=== PATIENT | male | born 1950 | race Caucasian/White ===

== ENCOUNTER 2021-06-19 15:22 | Emergency (ER) | payer MEDICARE ==
[2021-06-19 16:00] VITALS: BP 149/91; PULSE 96
[2021-06-19] MEDS: GI Cocktail Oral Solution 30 ML PO ONE (16:25)
[2021-06-19] MEDS: Ondansetron 4 MG Tab.DIS ONE (16:26)
[2021-06-19] MEDS: Ondansetron 4 MG Tab.DIS PO ONE (16:26)
[2021-06-19] MEDS: Metoclopramide 10 MG/2 ML SDV IM ONE (17:17)
[2021-06-19] MEDS: Metoclopramide 10 MG/2 ML SDV ONE (17:28)
== END 2021-06-19 17:45 | disposition home or self-care (01) ==
LOC: LB.ED 15:22
DX: R06.6 Hiccough (principal); R11.2 Nausea with vomiting, unspecified; E11.9 Type 2 diabetes mellitus without complications; I48.91 Unspecified atrial fibrillation; Z79.899 Other long term (current) drug therapy
CPT/HCPCS: 36415; 80048; 84484; 85025; 93005; 96372; 99283; 99283-25; A9270-GY; J2765; Q0162